=== PATIENT | male | born 1955 | race Caucasian/White ===

== ENCOUNTER 2019-10-16 20:21 | Emergency (ER) | payer SELFPAY ==
[~2019-10-16] VITALS: Ht 188 cm; Wt 113.4 kg
[2019-10-16 20:29] VITALS: BP 150/56
[2019-10-16] MEDS ORDERED: FOLIC ACID 1 MG, MULTIPLE VITAMIN 10 ML, MAGNESIUM SULF SDV 50% 8 MEQ, THIAMINE INJ 100... INJ ONE ×5 (21:00)
== END 2019-10-16 21:31 | disposition home or self-care (01) ==
LOC: EDBD 20:21 → ER 20:21
DX: G89.29 Other chronic pain (principal); M54.42 Lumbago with sciatica, left side; M54.41 Lumbago with sciatica, right side; F10.129 Alcohol abuse with intoxication, unspecified; R45.6 Violent behavior
CPT/HCPCS: 99283; J3411; J3475; J7030